=== PATIENT | female | born 1985 | race Asian ===

== ENCOUNTER 2017-12-13 21:03 | Emergency (ER) | payer BC ==
[2017-12-13 21:23] VITALS: BP 112/69
--- NOTE | 2017-12-13 21:27 | UC ---
Eye Complaint HPI - HPI Summary HPI Summary: 32 yo female presents with left eye redness, itching, watering, and FB sensation for the last 3 days. She tells me that her symptoms began suddenly 3 days ago and seemed to improve yesterday, but her worse today. She does wear contacts daily, but did not today due to worsening of her symptoms. They are daily throw away contacts, which she says she adheres to. Denies vision changes , injury to eye, or working with any fine particles/materials. - History of Current Complaint Chief Complaint: UCEye Stated Complaint: EYE IRRITATION Time Seen by Provider: 12/13/17 21:27 Hx Obtained From: Patient Onset/Duration: Sudden Onset Timing: Constant Severity Initially: Mild Severity Currently: Moderate Pain Intensity: 5 Pain Scale Used: 0-10 Numeric - Allergies/Home Medications Allergies/Adverse Reactions: Allergies Allergy/AdvReac Type Severity Reaction Status Date / Time No Known Allergies Allergy Verified 12/13/17 21:23 Home Medications: Home Medications Vitamins* 12/13/17 [History] PMH/Surg Hx/FS Hx/Imm Hx - Additional Past Medical History Additional PMH: None - Surgical History Surgical History: Yes Surgery Procedure, Year, and Place: - Family History Known Family History: Positive: None - Social History Occupation: Employed Full-time Lives: With Family Alcohol Use: None Substance Use Type: None Smoking Status (MU): Never Smoked Tobacco Review of Systems Constitutional: Negative Skin: Negative Eyes: Drainage, Eye Redness ENT: Negative Respiratory: Negative Cardiovascular: Negative Gastrointestinal: Negative Neurovascular: Negative Neurological: Negative Psychological: Negative All Other Systems Reviewed And Are Negative: Yes Physical Exam - Summary Physical Exam Summary: GENERAL: WDWN. No pain distress. SKIN: No rashes, sores, lesions, or open wounds. HEENT: Head: AT/NC Eyes: EOM intact. PERRLA. LEFT EYE: Moderate scleral injection. Conjunctiva with mild erythema and inflammation. Mild clear discharge. RIGHT EYE : Conjunctiva clear without inflammation or discharge. No FBs appreciated. Fluorescein exam performed without any areas of increased uptake, ulceration, dendrictic lesions or bob sign. Nose: NTTP maxillary and frontal sinus. NECK: Supple. Nontender. No lymphadenopathy. CHEST: No accessory muscle use. Breathing comfortably and in no distress. CV: Pulses intact. Cap refill <2seconds NEURO: Alert. PSYCH: Age appropriate behavior. Triage Information Reviewed: Yes Vital Signs: Initial Vital Signs Temp 97.8 F 12/13/17 21:18 Pulse 62 12/13/17 21:18 Resp 16 12/13/17 21:18 BP 112/69 12/13/17 21:18 Pulse Ox 100 12/13/17 21:18 Vital Signs Reviewed: Yes Eye Complaint Course/Dx - Course Course Of Treatment: Suspect conjunctivities of left eye. Rx for Cipro eye drops as she is a contact wearer. - Differential Dx/Diagnosis Provider Diagnoses: Left eye conjunctivitis Discharge - Sign-Out/Discharge Documenting (check all that apply): Patient Departure All imaging exams completed and their final reports reviewed: No Studies - Discharge Plan Condition: Stable Disposition: HOME Patient Education Materials: Conjunctivitis (ED) Referrals: No Primary Care Phys,NOPCP [Primary Care Provider] - Additional Instructions: If you develop a fever, shortness of breath, chest pain, new or worsening symptoms - please call your PCP or go to the ED. - Billing Disposition and Condition Condition: STABLE Disposition: Home - Attestation Statements Provider Attestation: Per institutional requirements, I have reviewed the chart, however, I was not consulted specifically or made aware of this patient by the midlevel provider. I did not personally evaluate, interact with , or disposition this patient.
[2017-12-13] MEDS ORDERED: Fluorescein Sod TOPICAL 0.6* 0.6 MG TEST OPHTHALMIC ONE (21:44)
[2017-12-13] MEDS ORDERED: Tetracaine 0.5% OPTH.SOL 4 ML* 1 DROP BTL LEFT EYE ONE (21:44)
[2017-12-13] MEDS ORDERED: Ciprofloxacin 0.3% OPTH.SOL* 2.5 ML BTL LEFT EYE ONE (22:08)
== END 2017-12-13 22:20 | disposition home or self-care (01) ==
LOC: UCEAST 21:03 → EDBD 21:03 → UCEAST 22:45
DX: H10.32 Unspecified acute conjunctivitis, left eye (principal)
CPT/HCPCS: 99202; A9270-GY; G0463